=== PATIENT | female | born 1995 | race African-American/Black ===

== ENCOUNTER 2022-05-19 16:14 | Emergency (ER) | payer SELFPAY ==
[2022-05-19 19:30] LABS: C. TRACHOMATIS BY PCR NOT DETECTED; N. GONORRHOEAE BY PCR NOT DETECTED
== END 2022-05-19 19:46 | disposition home or self-care (01) ==
LOC: MW.ED 16:14
DX: N76.0 Acute vaginitis (principal)
CPT/HCPCS: 81001; 81025; 87086; 87480; 87491; 87510; 87591; 87660; 99283

== ENCOUNTER 2025-03-06 21:28 | Emergency (ER) | payer SELFPAY ==
[2025-03-06 22:26] LABS: APPEARANCE,URINE SLT CLOUDY; GLUCOSE,URINE NEGATIVE (NEGATIVE); OCCULT BLOOD,URINE TRACE-INTACT (NEGATIVE)
[2025-03-06 22:33] LABS: EPITHELIAL CELLS,URINE FEW (NONE-FEW)
[2025-03-06 23:17] LABS: CANDIDA DNA PROBE NEGATIVE (NEGATIVE); GARDNERELLA DNA PROBE POSITIVE (NEGATIVE); TRICHOMONAS DNA PROBE NEGATIVE (NEGATIVE)
[2025-03-06 23:53] LABS: C. TRACHOMATIS BY PCR NOT DETECTED; N. GONORRHOEAE BY PCR NOT DETECTED
== END 2025-03-06 23:41 | disposition home or self-care (01) ==
LOC: MW.ED 21:28
DX: N76.0 Acute vaginitis (principal); N39.0 Urinary tract infection, site not specified; R03.0 Elevated blood-pressure reading, without diagnosis of hypertension; Z20.2 Contact with and (suspected) exposure to infections with a predominantly sexual mode of transmission; Z79.899 Other long term (current) drug therapy
CPT/HCPCS: 81001; 81025; 87480; 87491; 87510; 87591; 87660; 96372; 99283; J0696; J2003